=== PATIENT | female | born 1955 | race Caucasian/White ===

== ENCOUNTER 2017-12-21 08:24 | Day surgery (SDC) | payer OTHER ==
[~2017-12-21 08:24] MED LIST: MIDAZOLAM INJ 2 MG/2 ML VIAL (J2250) As Ordered
[2017-12-21] MEDS: CYCLOPENTOLATE 2% OPHTH SOLN 2ML BTL OS (09:33)
[2017-12-21] MEDS: OFLOXACIN 0.3 % (OCUFLOX) OPTH SOL 5ML OS (09:34)
[2017-12-21] MEDS: PHENYLEPHRINE 2.5% OPHTH SOL 2ML OS (09:34)
[2017-12-21] MEDS: LIDOCAINE 3.5 % 1ML OPHTH TOPICAL GEL OU (09:34)
[2017-12-21] MEDS: TROPICAMIDE 1% OPHTH SOLN 2ML OS (09:34)
[2017-12-21 09:40] LABS: BEDSIDE GLUCOSE 120 MG/DL (80-115)
[2017-12-21] MEDS ORDERED: fentaNYL 100 MCG/2 ML INJECTION (J3010) As Ordered (10:54)
[2017-12-21] MEDS: PHENYLEPHRINE HCL 10 % OPHTH. SOL 5ML OS (10:57)
[2017-12-21] MEDS: TRIAMCINOLONE PRES FR 40 MG/ML 1ML(TRIESENCE)(OR EYE ONLY)(J3300 PER 1MG) As Ordered (10:57)
[2017-12-21] MEDS: MOXIFLOXACIN IN BSS 0.25MG/0.25ML INTRACAMERAL INJ (OR EYE ONLY)(J2280) As Ordered (10:57)
[2017-12-21] MEDS: POVIDONE-IODINE 5% OPHTH PREP SOL 30ML As Ordered (10:57)
[2017-12-21] MEDS: HEALON DUET (HEALON 10MG/ML 0.55ML & HEALON ENDOCOAT 30MG/ML 0.85ML) As Ordered ×2 (10:57→11:09)
[2017-12-21] MEDS: LIDOCAINE 1% SDV 5 ML VIAL As Ordered (10:57)
[2017-12-21] MEDS: BSS with VANC/TOB/EPI for EYE CASES IR (10:57)
== END 2017-12-21 11:56 | disposition home or self-care (01) ==
LOC: M SDC 08:24
DX: H26.9 Unspecified cataract (principal); H52.202 Unspecified astigmatism, left eye; E78.5 Hyperlipidemia, unspecified; E11.9 Type 2 diabetes mellitus without complications; Z79.899 Other long term (current) drug therapy; I10 Essential (primary) hypertension; K21.9 Gastro-esophageal reflux disease without esophagitis; Z79.82 Long term (current) use of aspirin
CPT/HCPCS: 66984

== ENCOUNTER 2017-12-28 08:36 | Day surgery (SDC) | payer OTHER ==
[~2017-12-28 08:36] MED LIST changes: +ACETAMINOPHEN 325 MG TAB PO; -MIDAZOLAM INJ 2 MG/2 ML VIAL (J2250) As Ordered; +PHENYLEPHRINE HCL 10 % OPHTH. SOL 5ML OD
[2017-12-28] MEDS: PHENYLEPHRINE 2.5% OPHTH SOL 2ML OD (08:57)
[2017-12-28] MEDS: CYCLOPENTOLATE 2% OPHTH SOLN 2ML BTL OD (08:57)
[2017-12-28] MEDS: LIDOCAINE 3.5 % 1ML OPHTH TOPICAL GEL OU (08:58)
[2017-12-28] MEDS: TROPICAMIDE 1% OPHTH SOLN 2ML OD (08:58)
[2017-12-28] MEDS: OFLOXACIN 0.3 % (OCUFLOX) OPTH SOL 5ML OD (08:58)
[2017-12-28 09:26] LABS: BEDSIDE GLUCOSE 115 MG/DL (80-115)
[2017-12-28] MEDS: POVIDONE-IODINE 5% OPHTH PREP SOL 30ML As Ordered (10:07)
[2017-12-28] MEDS: TRIAMCINOLONE PRES FR 40 MG/ML 1ML(TRIESENCE)(OR EYE ONLY)(J3300 PER 1MG) As Ordered (10:09)
[2017-12-28] MEDS: BSS with VANC/TOB/EPI for EYE CASES IR (10:09)
[2017-12-28] MEDS: HEALON DUET (HEALON 10MG/ML 0.55ML & HEALON ENDOCOAT 30MG/ML 0.85ML) As Ordered (10:09)
[2017-12-28] MEDS: LIDOCAINE 1% SDV 5 ML VIAL As Ordered (10:09)
[2017-12-28] MEDS: MOXIFLOXACIN IN BSS 0.25MG/0.25ML INTRACAMERAL INJ (OR EYE ONLY)(J2280) As Ordered (10:09)
[2017-12-28] MEDS ORDERED: MIDAZOLAM INJ 2 MG/2 ML VIAL (J2250) As Ordered (10:13)
[2017-12-28] MEDS ORDERED: fentaNYL 100 MCG/2 ML INJECTION (J3010) As Ordered (10:13)
[2017-12-28] MEDS ORDERED: AcetaZOLAMIDE 500 MG ER CAP PO (10:45)
[2017-12-28] MEDS ORDERED: TRIMETHOBENZAMIDE 300 MG CAP PO (10:45)
== END 2017-12-28 11:00 | disposition home or self-care (01) ==
LOC: M SDC 08:36
DX: H26.9 Unspecified cataract (principal); H52.201 Unspecified astigmatism, right eye; I10 Essential (primary) hypertension; E78.5 Hyperlipidemia, unspecified; E11.9 Type 2 diabetes mellitus without complications; K21.9 Gastro-esophageal reflux disease without esophagitis; Z79.84 Long term (current) use of oral hypoglycemic drugs; Z79.82 Long term (current) use of aspirin; Z79.899 Other long term (current) drug therapy
CPT/HCPCS: 66984

== ENCOUNTER 2019-05-17 08:19 | Day surgery (SDC) | payer OTHER ==
[~2019-05-17] VITALS: Ht 165.1 cm; Wt 90.7 kg
[~2019-05-17 08:19] MED LIST changes: -ACETAMINOPHEN 325 MG TAB PO; +ASPI81TA26 PO; +LISI20TA20 PO; +METF500T13 PO; +METO50TA7 PO; -PHENYLEPHRINE HCL 10 % OPHTH. SOL 5ML OD; +SIMV40TA20 PO
[2019-05-17] MEDS ORDERED: NS 1,000 ML IV ONE (09:00)
[2019-05-17 09:05] VITALS: BP 179/97
[2019-05-17] MEDS ORDERED: propofoL 200 MG/20 ML VIAL As Ordered ONE ×2 (09:37→09:47)
--- NOTE | 2019-05-17 09:57 | ROOR ---
Patient Name: Teresita Mccauley Procedure Date: 05/17/2019 9:36 AM Date of : 1955 Age: 64 Room: [facility] Gender: Female Note Status: Finalized Procedure: Colonoscopy Indications: Screening for colorectal malignant neoplasm Providers: Jorge A CONCEPCION MD Referring MD: LUIS MANUEL JACOB NP Requesting Provider: Medicines: Monitored Anesthesia Care Complications: No immediate complications. Procedure: Pre-Anesthesia Assessment: - The heart rate, respiratory rate, oxygen saturations, blood pressure, adequacy of pulmonary ventilation, and response to care were monitored throughout the procedure. The Colonoscope was introduced through the anus and advanced to the cecum, identified by appendiceal orifice and ileocecal valve. The colonoscopy was performed without difficulty. The patient tolerated the procedure well. The quality of the bowel preparation was good. Findings: The perianal and digital rectal examinations were normal. Internal hemorrhoids were found during retroflexion. The hemorrhoids were medium-sized. Two sessile polyps were found in the sigmoid colon and splenic flexure. The polyps were diminutive in size. These polyps were removed with a cold snare. Resection and retrieval were complete. A few medium-mouthed diverticula were found in the sigmoid colon. The exam was otherwise without abnormality on direct and retroflexion views. Impression: - Internal hemorrhoids. - Two diminutive polyps in the sigmoid colon and at the splenic flexure, removed with a cold snare. Resected and retrieved. - Diverticulosis in the sigmoid colon. - The examination was otherwise normal on direct and retroflexion views. Recommendation: - Repeat colonoscopy in 5 years for surveillance. Jorge A Concepcion MD Jorge A CONCEPCION MD 05/17/2019 9:56:50 AM Electronically signed by Jorge A CONCEPCION MD Number of Addenda: 0 Note Initiated On: 05/17/2019 9:36 AM Estimated Blood Loss: Estimated blood loss: none.
[2019-05-17] MEDS ORDERED: METOPROLOL TART 50 MG TAB PO ONE (10:00)
[2019-05-17 10:20] VITALS: BP 141/80
== END 2019-05-17 10:26 | disposition home or self-care (01) ==
LOC: M OPP 08:19
PROVIDERS: ATTEND Internal Medicine Gastroenterology
DX: Z12.11 Encounter for screening for malignant neoplasm of colon (principal); D12.5 Benign neoplasm of sigmoid colon; D12.3 Benign neoplasm of transverse colon; K57.30 Diverticulosis of large intestine without perforation or abscess without bleeding; K64.8 Other hemorrhoids; E11.9 Type 2 diabetes mellitus without complications; I10 Essential (primary) hypertension; E78.00 Pure hypercholesterolemia, unspecified; K21.9 Gastro-esophageal reflux disease without esophagitis; Z87.891 Personal history of nicotine dependence; Z79.82 Long term (current) use of aspirin; Z79.84 Long term (current) use of oral hypoglycemic drugs; Z79.899 Other long term (current) drug therapy

== ENCOUNTER 2025-02-15 08:47 | Day surgery (SDC) | payer MEDICARE ==
[~2025-02-15] VITALS: Ht 165.1 cm; Wt 86.2 kg
[~2025-02-15 08:47] MED LIST changes: +EPIN0.3I11 IM; -LISI20TA20 PO; +LISI20TA37 PO
[2025-02-15] MEDS ORDERED: GLYCOPYRROLATE INJ 0.2 MG/ML 2 ML VIAL As Ordered ONE (10:55)
[2025-02-15] MEDS ORDERED: LIDOCAINE 2% 100 MG/5 ML SDV (FOR ANES.) As Ordered ONE (10:55)
[2025-02-15 11:18] VITALS: TEMP 97.8
[2025-02-15 11:40] VITALS: BP 99/54; O2SAT 95
== END 2025-02-15 11:44 | disposition home or self-care (01) ==
LOC: M OPP 08:47
PROVIDERS: ATTEND Internal Medicine Gastroenterology
DX: Z12.11 Encounter for screening for malignant neoplasm of colon (principal); D12.2 Benign neoplasm of ascending colon; D12.4 Benign neoplasm of descending colon; K57.30 Diverticulosis of large intestine without perforation or abscess without bleeding; K64.8 Other hemorrhoids; I10 Essential (primary) hypertension; Z79.82 Long term (current) use of aspirin; Z79.899 Other long term (current) drug therapy; Z86.0100 Personal history of colon polyps, unspecified; Z91.018 Allergy to other foods
CPT/HCPCS: 45385; 88305; J1596